=== PATIENT | male | born 1990 | race Caucasian/White ===

== ENCOUNTER 2018-08-23 00:14 | Outpatient (CLI) | payer SELFPAY | END 2018-08-23 00:15 | disposition critical access hospital (66) | LOC: EMS 00:14 | PROVIDERS: ATTEND Surgery | DX: T45.0X2A Poisoning by antiallergic and antiemetic drugs, intentional self-harm, initial encounter (principal); T39.312A Poisoning by propionic acid derivatives, intentional self-harm, initial encounter | CPT/HCPCS: A0425; A0427 ==

== ENCOUNTER 2018-08-23 00:28 | Emergency (ER) | payer SELFPAY ==
--- NOTE | 2018-08-23 01:03 | ED Physician Documentation ---
PD HPI OVERDOSE - Stated complaint Stated Complaint: OD - Chief complaint Chief Complaint: MHE - History obtained from History obtained from: Patient - History of Present Illness Timing - onset: Today Subtance(s) ingested: Multiple Associated symptoms: No: Cardiac arrest, Resp depression, Resp arrest, Unresponsive, Decreased responsiveness, Altered mental status, Agitated, Combative, Hallucinations, Chest pain, Abdominal pain, Palpitations, Dyspnea, Diaphoresis, NVD Contributing factors: Depresssed Pain level now: 0 Similar symptoms before: Has not had sx before Recently seen: Not recently seen - Additional information Additional information: patient was upset over a verbal argument that took place tonight between his spouse and another family member who recently moved in to live with them. as a result, he intentionally overdosed on benadryl and ibuprofen. he says he took approximately 6-8 tablets benadryl and approximately 4-6 tablets of ibuprofen. on my HPI, he says he is asymptomatic. he tells me he has dissociative identity disorder and at this time is a female named Ivory. spouse is in ED at bedside and she corroborates that this is not unusual or new for patient (the dissociative identity disorder; however, the overdose is not typical for patient). Review of Systems Eyes: reports: Reviewed and negative Ears: denies: Tinnitus/ringing Cardiac: reports: Reviewed and negative Respiratory: reports: Reviewed and negative GI: reports: Reviewed and negative : denies: Unable to Void, Incontinent Neurologic: reports: Reviewed and negative Psychiatric: reports: Depressed. denies: Suicidal, Homicidal, Hallucinations, Delusions PD PAST MEDICAL HISTORY - Past Medical History Past Medical History: Yes Other Past Medical History: personality disorder. - Past Surgical History Past Surgical History: No - Allergies Allergies/Adverse Reactions: Allergies Allergy/AdvReac Type Severity Reaction Status Date / Time No Known Drug Allergies Allergy Verified 08/23/18 00:46 - Social History Does the pt smoke?: No Smoking Status: Never smoker Does the pt drink ETOH?: Yes Does the pt have substance abuse?: Yes Substance Use and Type: Marijuana - Immunizations Immunizations are current?: Yes PD ED PE NORMAL - Vitals Vital signs reviewed: Yes - General General: Alert and oriented X 3, No acute distress, Well developed/nourished - HEENT HEENT: PERRL, EOMI, Moist mucous membranes - Cardiac Cardiac: RRR, No murmur - Respiratory Respiratory: No respiratory distress, Clear bilaterally - Abdomen Abdomen: Soft, Non tender - Derm Derm: Normal color, Warm and dry - Neuro Neuro: Alert and oriented X 3 Eye Opening: Spontaneous Motor: Obeys Commands Verbal: Oriented GCS Score: 15 PD ED PE EXPANDED - Psych Psych: Tearful (tearful at times, but mostly exhibits mildly depressed mood and mildly blunted affect. patient is able to converse appropriately and maintains her composure during H+P. for some answers to questions, patient closes eyes and indicates to me that she is asking another identity my question for the answer) Results - Vitals Vitals: Oxygen O2 Source Room air - Labs Labs: Microbiology 08/23/18 01:00 Urine Culture - Final Urine,Clean Catch Coag Negative Staphylococcus Laboratory Tests 08/23/18 08/23/18 08/23/18 01:00 01:59 01:59 WBC 5.7 RBC 4.31 L Hgb 13.5 L Hct 40.0 L MCV 92.8 MCH 31.3 H MCHC 33.8 RDW 12.5 Plt Count 182 MPV 10.3 Neut # (Auto) 3.5 Lymph # (Auto) 1.5 [place] # (Auto) 0.5 Eos # (Auto) 0.1 Baso # (Auto) 0.1 Absolute Nucleated RBC 0.00 Nucleated RBC % 0.0 Sodium 140 Potassium 4.1 Chloride 105 Carbon Dioxide 23 Anion Gap 12.0 BUN 8 Creatinine 0.6 Estimated GFR (MDRD) 159 Glucose 95 Calcium 9.0 Total Bilirubin 0.3 AST 17 ALT 16 Alkaline Phosphatase 39 L Total Protein 6.8 Albumin 4.3 Globulin 2.5 Albumin/Globulin Ratio 1.7 Lipase 25 TSH Urine Color YELLOW Urine Clarity CLEAR Urine pH 5.5 Ur Specific [place] <=1.005 Urine Protein NEGATIVE Urine Glucose (UA) NEGATIVE Urine Ketones NEGATIVE Urine Occult Blood NEGATIVE Urine Nitrite POSITIVE H Urine Bilirubin NEGATIVE Urine Urobilinogen 0.2 (NORMAL) Ur Leukocyte Esterase NEGATIVE Urine RBC 0-5 Urine WBC 0-3 Ur Squamous Epith Cells FEW Squamous Urine Bacteria Few Ur Microscopic Review INDICATED Urine Culture Comments INDICATED Salicylates < 6.0 Urine Opiates Screen NEGATIVE Ur Oxycodone Screen NEGATIVE Urine Methadone Screen NEGATIVE Ur Propoxyphene Screen NEGATIVE Acetaminophen < 10 L Ur Barbiturates Screen NEGATIVE Ur Tricyclics Screen NEGATIVE Ur Phencyclidine Scrn NEGATIVE Ur Amphetamine Screen NEGATIVE U Methamphetamines Scrn NEGATIVE U Benzodiazepines Scrn NEGATIVE Urine Cocaine Screen NEGATIVE U Cannabinoids Screen POSITIVE H Ethyl Alcohol 47.1 08/23/18 01:59 WBC RBC Hgb Hct MCV MCH MCHC RDW Plt Count MPV Neut # (Auto) Lymph # (Auto) [place] # (Auto) Eos # (Auto) Baso # (Auto) Absolute Nucleated RBC Nucleated RBC % Sodium Potassium Chloride Carbon Dioxide Anion Gap BUN Creatinine Estimated GFR (MDRD) Glucose Calcium Total Bilirubin AST ALT Alkaline Phosphatase Total Protein Albumin Globulin Albumin/Globulin Ratio Lipase TSH 1.88 Urine Color Urine Clarity Urine pH Ur Specific [place] Urine Protein Urine Glucose (UA) Urine Ketones Urine Occult Blood Urine Nitrite Urine Bilirubin Urine Urobilinogen Ur Leukocyte Esterase Urine RBC Urine WBC Ur Squamous Epith Cells Urine Bacteria Ur Microscopic Review Urine Culture Comments Salicylates Urine Opiates Screen Ur Oxycodone Screen Urine Methadone Screen Ur Propoxyphene Screen Acetaminophen Ur Barbiturates Screen Ur Tricyclics Screen Ur Phencyclidine Scrn Ur Amphetamine Screen U Methamphetamines Scrn U Benzodiazepines Scrn Urine Cocaine Screen U Cannabinoids Screen Ethyl Alcohol PD MEDICAL DECISION MAKING - ED course Complexity details: reviewed results, re-evaluated patient, considered differential, d/w patient, d/w family ED course: patient exhibits mild/moderate depressed mood during stay but is calm, polite, conversant. patient and spouse indicate the only unusual behavior for this patient tonight was the overdose; the patient and spouse indicate they have been living with his dissociative identity disorder for years and are not concerned about this. immediately after taking the benadryl and ibuprofen, patient regretted doing so and induced vomiting which resulted in regurgitation of pills. after few hours in ED, patient remained awake, alert, and asymptomatic with stable vital signs and NAD. patient already has appointment with therapist scheduled for tomorrow and patient and spouse are comfortable with discharge home without or [facility] evaluation; I offered these services but patient can contract for safety and I do not feel patient is immediate threat to self or others such as to require detaining him in ED against his will at this time. Departure - Departure Disposition: 01 Home, Self Care Clinical Impression: Drug overdose Condition: Good Health Concerns: overdose Plan of Treatment: follow up later today as scheduled. return to the emergency department (or call 911) at any time you feel unsafe and wish to be reevaluated. Care Goals: prevention of recurrence, treatment of underlying cause Assessment: see diagnosis Instructions: ED Overdose Intentional Discharge Date/Time: 08/23/18 02:53
[2018-08-23 01:54] LABS: MUDS CUTOFF CONCENTRATIONS CUTOFF CONC BELOW:
[2018-08-23 01:56] LABS: BILIRUBIN,URINE NEGATIVE (NEGATIVE); GLUCOSE, URINE (UA) NEGATIVE (NEGATIVE); KETONES,URINE (UA) NEGATIVE (NEGATIVE); LEUKOCYTE ESTERASE, URINE NEGATIVE (NEGATIVE); NITRITE,URINE POSITIVE (NEGATIVE); OCCULT BLOOD,URINE NEGATIVE (NEGATIVE); PH,URINE 5.5 PH (5.0-7.5); PROTEIN,URINE NEGATIVE (NEGATIVE); UROBILINOGEN,URINE 0.2 (NORMAL) E.U./dL (NORMAL)
[2018-08-23 01:59] LABS: CLARITY,URINE CLEAR (CLEAR)
[2018-08-23 02:03] VITALS: BP 111/73
[2018-08-23 02:03] LABS: BACTERIA,URINE Few /HPF (None Seen); RBC,URINE 0-5 /HPF (0-5); SQUAMOUS EPITHELIAL CELL,UR FEW Squamous (<= Few)
[2018-08-23 02:03] LABS: BASOPHILS # (AUTO) 0.1 10^3/uL (0.0-0.1); BASOPHILS % (AUTO) 0.9 %; EOSINOPHILS # (AUTO) 0.1 10^3/uL (0.0-0.7); EOSINOPHILS % (AUTO) 1.9 %; HGB - HEMOGLOBIN 13.5 g/dL (14.0-18.0); LYMPHOCYTES # (AUTO) 1.5 10^3/uL (1.5-3.5); LYMPHOCYTES % (AUTO) 25.8 %; MEAN CORPUSCULAR HEMOGLOBIN 31.3 pg (27.0-31.0); MEAN CORPUSCULAR HGB CONC 33.8 g/dL (32.0-36.0); MEAN CORPUSCULAR VOLUME 92.8 fL (80.0-94.0); MEAN PLATELET VOLUME 10.3 fL (7.4-11.4); MONOCYTES # (AUTO) 0.5 10^3/uL (0.0-1.0); MONOCYTES % (AUTO) 9.3 %; NEUTROPHILS # (AUTO) 3.5 10^3/uL (1.5-6.6); NEUTROPHILS % (AUTO) 61.9 %; PLT - PLATELET COUNT 182 10^3/uL (130-450); RED BLOOD COUNT 4.31 10^6/uL (4.70-6.10); RED CELL DISTRIBUTION WIDTH 12.5 % (12.0-15.0); WHITE BLOOD COUNT 5.7 x10^3/uL (4.8-10.8)
[2018-08-23 02:06] LABS: AMPHETAMINE SCREEN,URINE NEGATIVE (NEGATIVE); BENZODIAZEPINES SCREEN, URINE NEGATIVE (NEGATIVE); COCAINE SCREEN URINE NEGATIVE (NEGATIVE); METHADONE SCREEN, URINE NEGATIVE (NEGATIVE); METHAMPHETAMINES SCREEN, URINE NEGATIVE (NEGATIVE); OPIATE SCREEN, URINE NEGATIVE (NEGATIVE); OXYCODONE SCREEN, URINE NEGATIVE (NEGATIVE); PROPOXYPHENE SCREEN, URINE NEGATIVE (NEGATIVE); TRICYCLIC ANTIDEPRESSANT,URINE NEGATIVE (NEGATIVE)
[2018-08-23 02:20] LABS: ACETAMINOPHEN < 10 ug/mL (10-30); ALBUMIN 4.3 g/dL (3.2-5.5); ALBUMIN/GLOBULIN RATIO 1.7 (1.0-2.2); ALKALINE PHOSPHATASE 39 IU/L (42-121); ALT ALANINE AMINOTRANSFERASE 16 IU/L (10-60); AST ASPARTATE AMINOTRANSFERASE 17 IU/L (10-42); BILIRUBIN,TOTAL 0.3 mg/dL (0.2-1.0); BUN - BLOOD UREA NITROGEN 8 mg/dL (6-20); CARBON DIOXIDE - CO2 23 mmol/L (21-32); CHLORIDE 105 mmol/L (101-111); CREATININE 0.6 mg/dL (0.6-1.2); GFR - MDRD 159 (>89); GLUCOSE 95 mg/dL (70-100); LIPASE 25 U/L (22-51); SALICYLATE < 6.0 mg/dL; SODIUM 140 mmol/L (135-145); TOTAL PROTEIN 6.8 g/dL (6.7-8.2)
== END 2018-08-23 02:53 | disposition home or self-care (01) ==
LOC: EDSEX → EDUNIT# → ED 00:28
DX: T45.0X2A Poisoning by antiallergic and antiemetic drugs, intentional self-harm, initial encounter (principal); T39.312A Poisoning by propionic acid derivatives, intentional self-harm, initial encounter; F44.81 Dissociative identity disorder
CPT/HCPCS: 36415; 80053; 80306; 80307; 80320; 80329; 81001; 81003; 83690; 84443; 85025; 87086; 99283; 99284

== ENCOUNTER 2021-11-15 16:55 | Outpatient (CLI) | payer SELFPAY | END 2021-11-15 16:56 | disposition EMS.NT | LOC: EMS 16:55 | DX: R41.0 Disorientation, unspecified (principal); R26.81 Unsteadiness on feet; R07.89 Other chest pain ==